=== PATIENT | male | born 1995 | race African-American/Black ===

== ENCOUNTER 2016-10-06 20:20 | Emergency (ER) | payer OTHER ==
[~2016-10-06] VITALS: Ht 165.1 cm; Wt 81.5 kg
[2016-10-06 20:28] VITALS: BP 121/80; PULSE 74; RESP 15; TEMP 99.4; O2SAT 100
--- NOTE | 2016-10-06 21:53 | PD ---
HPI Chief Complaint: Complaint Time Seen by Provider: 21:40 Travel History International Travel<30 days: No Contact w/Intl Traveler<30days: No Traveled to known affect area: No History of Present Illness HPI 21-year-old male presents to the emergency room for evaluation of a lesion to his groin. He was requesting STD testing. Patient had unprotected sex with his girlfriend one week ago. She told him that she hadn't been checked in a long time. About 3 days after having sex he developed a painful lesion to his left lower groin that began to spontaneously drain. He states since it started it has decreased in size. Patient only has sex with females. Denies dysuria, urgency, frequency, fever, chills, nausea, vomiting. PFSH Past Medical History Diminished Hearing: No Tetanus Vaccination: Unknown Influenza Vaccination: Yes ?: Not Social History Alcohol Use: No Tobacco Use: Yes (ABOUT 4 CIG A DAY) Substance Use: No Allergies-Medications (Allergen,Severity, Reaction): Coded Allergies: No Known Allergies (Unverified , 10/06/16) Review of Systems Except as stated in HPI: all other systems reviewed are Neg Physical Exam Narrative GENERAL: Well-nourished, well-developed male in no acute distress. Afebrile. Ambulatory. SKIN: Focused skin assessment warm/dry. HEAD: Normocephalic. EYES: No scleral icterus. No injection or drainage. NECK: Supple, trachea midline. No JVD or lymphadenopathy. CARDIOVASCULAR: Regular rate and rhythm without murmurs, gallops, or rubs. RESPIRATORY: Breath sounds equal bilaterally. No accessory muscle use. GENITOURINARY: Testes descended bilaterally without evidence of rotation. No urethral discharge. There is an indurated area in the left groin region which measures about 1 cm in diameter. It is fluctuant with purulent drainage. No surrounding inflammation. Data Data Last Documented VS Vital Signs Date Time Temp Pulse Resp B/P Pulse Ox O2 Delivery O2 Flow Rate FiO2 10/06/16 20:28 99.4 74 15 121/80 100 MDM Medical Decision Making Medical Screen Exam Complete: Yes Emergency Medical Condition: Yes Medical Record Reviewed: Yes Differential Diagnosis Abscess versus HPV versus herpes Narrative Course 21-year-old male presents to the emergency room requesting STD testing. He states he had protected sex with his girlfriend one week ago who hasn't been checked for a long time. Since then he has developed a purulent lesion to the left groin. Physical exam reveals a small abscess that is spontaneously draining. No surrounding inflammation. It is nontender to palpation. Patient has recently shaved and it is likely a cause folliculitis/abscess. Because abscesses spontaneously draining, it does not require incision and drainage procedure at this time. No evidence of underlying infection or indication for antibiotics. Patient was informed that the emergency department does not routinely perform STD testing and he will need follow-up with [facility] Department for a full STD panel. He was told to return to the emergency room for worsening symptoms. He understands and agrees to plan. Diagnosis Primary Impression: Groin abscess Referrals: Primary Care Physician [facility] Dept. Patient Instructions: Abscess (ED), General Instructions Additional Instructions: Rest and drink plenty of fluids. Do not have unprotected sex. Follow up with the health department for complete STD testing. Return to emergency room for worsening symptoms, as discussed. Disposition: 01 DISCHARGE HOME Condition: Stable Angelique Souza October 06, 2016 21:53
== END 2016-10-06 22:05 | disposition home or self-care (01) ==
LOC: PHEFT 20:20
DX: L02.214 Cutaneous abscess of groin (principal); F17.210 Nicotine dependence, cigarettes, uncomplicated
CPT/HCPCS: 99282

== ENCOUNTER 2016-10-17 17:48 | Emergency (ER) | payer OTHER ==
[~2016-10-17] VITALS: Ht 170.2 cm; Wt 70.6 kg
[2016-10-17 17:59] VITALS: BP 111/77; PULSE 74; RESP 16; TEMP 98.5; O2SAT 99
[2016-10-17] MEDS ORDERED: PERM5CRE TOPICAL (18:36)
--- NOTE | 2016-10-17 18:39 | PD ---
HPI Chief Complaint: Skin Problem Time Seen by Provider: 18:36 Travel History International Travel<30 days: No Contact w/Intl Traveler<30days: No Traveled to known affect area: No History of Present Illness HPI 21 year-old male presents to the emergency room for evaluation of an itchy rash that is why the past 2 weeks. Patient states the rash started on his hands has spread to the rest of his body. He states it is most itchy at night, specifically at midnight. He has been applying lotion and taking extra showers but not taking taking her down anything else for his discomfort. Denies pain. Denies fever, chills, nausea, vomiting. He thought it was an allergic reaction. PFSH Past Medical History Diminished Hearing: No Tetanus Vaccination: Unknown Social History Alcohol Use: No Tobacco Use: Yes (ABOUT 4 CIG A DAY) Substance Use: No Allergies-Medications (Allergen,Severity, Reaction): Coded Allergies: No Known Allergies (Unverified , 10/17/16) Reported Meds & Prescriptions Reported Meds & Active Scripts Active No Active Prescriptions or Reported Medications Review of Systems Except as stated in HPI: all other systems reviewed are Neg Physical Exam Narrative GENERAL: Well-nourished, well-developed male in no acute distress. Afebrile. Ambulatory. SKIN: Focused skin assessment warm/dry. Multiple maculopapular, raised 1-2 mm lesions to the upper and lower extremities. Mild excoriations. Positive burrowing sign. HEAD: Normocephalic. EYES: No scleral icterus. No injection or drainage. NECK: Supple, trachea midline. No JVD or lymphadenopathy. CARDIOVASCULAR: Regular rate and rhythm without murmurs, gallops, or rubs. RESPIRATORY: Breath sounds equal bilaterally. No accessory muscle use. PSYCHIATRIC: No delusional thought processes. No hallucinations. Data Data Last Documented VS Vital Signs Date Time Temp Pulse Resp B/P Pulse Ox O2 Delivery O2 Flow Rate FiO2 10/17/16 17:59 98.5 74 16 111/77 99 MDM Medical Decision Making Medical Screen Exam Complete: Yes Emergency Medical Condition: Yes Medical Record Reviewed: Yes Differential Diagnosis Scabies versus viral rash versus vwii-rrrx-zgr-mouth disease Narrative Course 21-year-old male presents to the emergency room for evaluation of itchy rash for the past 2 weeks. Started on hands and has spread. Physical exam reveals one to 2 mm maculopapular lesions in his upper and lower extremities. They are in the interdigital webspaces. Positive burrowing sign and breakfast, lunch, dinner sign. This is scabies. Patient discharged with prescription for permethrin and told to follow up with primary care physician or return for worsening symptoms. He understands and agrees to plan. Diagnosis Primary Impression: Scabies Referrals: Primary Care Physician Patient Instructions: General Instructions, Scabies (ED) Additional Instructions: Rest and drink plenty of fluids. Apply cream before bed. Wash off in the morning. Repeat in one week if new lepe develop. Follow-up with a primary care physician. Return to the emergency room for worsening symptoms. Med/Other Pt SpecificInfo: Prescription(s) given Scripts Permethrin Topical 5% 5% Cream1 Applic TOPICAL ONCE #1 TUBE Ref 0 Prov:Vee Duarte MD 10/17/16 Disposition: 01 DISCHARGE HOME Condition: Stable Angelique Souza October 17, 2016 18:39
== END 2016-10-17 18:43 | disposition home or self-care (01) ==
LOC: PHED 17:48 → PHEFT 18:43
DX: B86 Scabies (principal)
CPT/HCPCS: 99283

== ENCOUNTER 2016-11-17 18:15 | Emergency (ER) | payer OTHER ==
[~2016-11-17 18:15] MED LIST: PERM5CRE TOPICAL
[2016-11-17 18:22] VITALS: BP 111/75; PULSE 72; RESP 20; TEMP 98.5; O2SAT 98
[2016-11-17] MEDS ORDERED: PERM5CRE11 TOPICAL (19:02)
--- NOTE | 2016-11-17 19:02 | PD ---
HPI Chief Complaint: Skin Problem Time Seen by Provider: 18:40 Travel History International Travel<30 days: No Contact w/Intl Traveler<30days: No Traveled to known affect area: No History of Present Illness HPI 21-year-old male presents emergency department for evaluation of hand rash 2 days. Patient reports he has a history of scabies recently. He was treated with Elimite and the rash went away. He reports this rash is similar to his scabies rash. He reports the rash as pruritic localized to the left and right hands in the webs of the fingers. Symptoms severity is mild. No aggravating or alleviating factors. He denies fever, chills, recent illness. He has no other medical complaint. [facility], [facility] Past Medical History Medical History: Denies Significant Hx Diminished Hearing: No Past Surgical History Surgical History: No Previous Surgery Social History Alcohol Use: No Tobacco Use: No Substance Use: No Allergies-Medications (Allergen,Severity, Reaction): Coded Allergies: No Known Allergies (Unverified , 11/17/16) Reported Meds & Prescriptions Reported Meds & Active Scripts Active No Active Prescriptions or Reported Medications Review of Systems Except as stated in HPI: all other systems reviewed are Neg Physical Exam Narrative GENERAL: Well-nourished, well-developed patient. SKIN: Focused skin assessment warm/dry. Multiple small erythematous papules in the webs of the fingers on both hands. HEAD: Normocephalic. EYES: No scleral icterus. No injection or drainage. NECK: Supple, trachea midline. No JVD or lymphadenopathy. CARDIOVASCULAR: Regular rate and rhythm without murmurs, gallops, or rubs. RESPIRATORY: Breath sounds equal bilaterally. No accessory muscle use. Data Data Last Documented VS Vital Signs Date Time Temp Pulse Resp B/P Pulse Ox O2 Delivery O2 Flow Rate FiO2 11/17/16 18:22 98.5 72 20 111/75 98 MDM Medical Decision Making Medical Screen Exam Complete: Yes Emergency Medical Condition: Yes Differential Diagnosis Scabies rash, contact dermatitis, other Narrative Course 21-year-old male presents emergency department for evaluation of rash on both hands. Patient reports he had a recent history of scabies. Scabies was treated with Elimite and the rash resolved. He reports this rash similar to the previous rash. Patient be treated for scabies Diagnosis Primary Impression: Scabies Referrals: Primary Care Physician Scripts Permethrin Topical (Elimite Topical)5% Cream1 Applic TOPICAL ONCE #1 TUBE Ref 0 Prov:Nora Sandoval 11/17/16 Disposition: 01 DISCHARGE HOME Condition: Stable Nora Sandoval Nov 17, 2016 19:02
== END 2016-11-17 19:07 | disposition home or self-care (01) ==
LOC: PHEFT 18:15
DX: B86 Scabies (principal)
CPT/HCPCS: 99283